=== PATIENT | female | born 1995 | race Native Hawaiian/Other Pacific Islander ===

== ENCOUNTER 2021-01-04 14:23 | Outpatient (CLI) | payer OTHER | END 2021-01-04 21:37 | disposition home or self-care (01) | LOC: US 14:23 | PROVIDERS: ATTEND Nurse Practitioner Primary Care | DX: R22.1 Localized swelling, mass and lump, neck (principal) ==

== ENCOUNTER 2022-10-23 23:31 | Emergency (ER) | payer OTHER ==
[~2022-10-23] VITALS: Ht 165.1 cm; Wt 108.9 kg
[2022-10-24 02:10] VITALS: BP 126/76
== END 2022-10-24 02:10 | disposition home or self-care (01) ==
LOC: ED 23:31
DX: S00.03XA Contusion of scalp, initial encounter (principal); S16.1XXA Strain of muscle, fascia and tendon at neck level, initial encounter; F17.200 Nicotine dependence, unspecified, uncomplicated; I82.0 Budd-Chiari syndrome; Y04.8XXA Assault by other bodily force, initial encounter
CPT/HCPCS: 81025; 99282